=== PATIENT | female | born 1965 | race Caucasian/White ===

== ENCOUNTER 2016-05-28 11:23 | Emergency (ER) | payer OTHER ==
[2016-05-28 11:39] VITALS: PULSE 69; RESP 20; TEMP 98.1; O2SAT 93
[2016-05-28 11:42] VITALS: BP 166/74
--- NOTE | 2016-05-28 11:49 | UCPHY ---
H & P Patient Type: Established Chief Complaint Nursing Narrative: 5 days RLQ pain; nausea; last BM today; Time Seen by Provider: 05/28/16 11:45 HPI/ROS: CHIEF COMPLAINT: Abdominal pain HISTORY OF PRESENT ILLNESS: The patient presents to the ED for evaluation of a 5 day history of right-sided abdominal pain. The patient reports nausea but no vomiting or diarrhea. She denies fever, dysuria or hematuria. Patient's past medical history is significant for prior appendectomy. The patient denies any fever, cough or congestion. The patient reports her symptoms are moderate in nature. REVIEW OF SYSTEMS: A comprehensive 10 point review of systems is otherwise negative aside from elements mentioned in the history of present illness. Source: Patient Exam Limitations: No limitations - Personal History LMP (Females 10-55): Post Menopausal - Medical/Surgical History Hx Asthma: No Hx Chronic Respiratory Disease: No Hx Diabetes: No Hx Cardiac Disease: No Hx Renal Disease: No Hx Cirrhosis: No Hx Alcoholism: No Hx HIV/AIDS: No Hx Splenectomy or Spleen Trauma: No Other PMH: med hx-interstitial cystitis, gastic ulcers, migraines. surg-appy, tonsilectomy,hysteroscopy, urethral surgery - Family History Significant Family History: No pertinent family hx - Social History Smoking Status: Never smoked - Physical Exam Exam: General Appearance: Alert, no distress Eyes: Pupils equal and round no pallor or injection ENT, Mouth: Mucous membranes moist Respiratory: There are no retractions, lungs are clear to auscultation Cardiovascular: Regular rate and rhythm Gastrointestinal: Tenderness to palpation noted in right upper quadrant and mid quadrant, no peritoneal signs, no rebound or guarding Neurological: A&O, normal motor function, normal sensory exam, normal cranial nerves Skin: Warm and dry, no rashes Musculoskeletal: Neck is supple nontender Extremities: symmetrical, full range of motion Constitutional: Initial Vital Signs Temperature (C) 36.7 C 05/28/16 11:37 Heart Rate 69 05/28/16 11:37 Respiratory Rate 20 05/28/16 11:37 Blood Pressure 166/74 H 05/28/16 11:37 O2 Sat (%) 93 05/28/16 11:37 O2 Delivery Mode Room Air Allergies/Adverse Reactions: Penicillins Allergy (Verified 05/28/16 11:36) Home Medications: Medication Instructions Recorded [place] 05/28/16 GABAPENTIN 05/28/16 Hydrocodone/APAP 5/325 [[place] 1 - 2 each PO Q6 PRN #20 tab 05/28/16 5/325] Omeprazole 05/28/16 Oxycodone HCl 05/28/16 Valium 05/28/16 Medical Decision Making - Diagnostics Imaging Results: Imaging Impressions Abdomen Ultrasound 05/28/16 12:08 Impression: Normal right upper quadrant ultrasound. These findings discussed by telephone with Dr. Mushtaq Magana at 1345 hrs. Abdomen/Pelvis CT 05/28/16 13:24 Impression: 1. Findings suspicious for epiploic appendagitis along the right anterolateral aspect of the ascending colon 2. Cortical calcification upper pole left kidney probably secondary to previous scar trauma. 3. Small hypodensities in the left lobe liver lateral segment anteriorly probably representing cyst and/or hemangioma. These are indeterminate. 4. No evidence of urinary tract calculus These findings discussed by telephone with Dr. Mushtaq Magana at 1408 hrs. Attention: This CT examination is specifically designed to evaluate patients who are clinically suspected of having acute obstructive uropathy. This examination does not use radiographic contrast, and as such, provides only a limited evaluation of the abdomen, pelvis and retroperitoneum. If there is further clinical suspicion for pathological conditions other than obstructive uropathy, a complete CT evaluation of the abdomen and pelvis utilizing intravenous, oral, and rectal contrast should be considered. CT abdomen pelvis: Evidence of epiploic appendagitis noted, otherwise normal study. Study results reviewed by myself and discussed with radiologist Dr. Toni Singh. ED Course/Re-evaluation: The patient presents to the ED for 5 days of abdominal pain. The patient is noted to have mild to moderate right upper quadrant and right mid quadrant tenderness. A right upper quadrant ultrasound was ordered which demonstrates no evidence of obvious cholelithiasis or cholecystitis. The patient's liver function tests are within normal limits as are her CBC and metabolic panel. Patient was re-evaluated and noted to have ongoing abdominal pain. Given the uncertainty of the diagnosis and her tenderness a CT scan of the abdomen pelvis was ordered which demonstrates epiploic appendagitis. Patient has been informed that this is typically a benign self-limited disease. The patient will use NSAIDs as needed for pain. [place] as needed for severe pain. She is given customary aftercare instructions and return precautions. Differential Diagnosis: Differential diagnosis considered includes cholecystitis, cholelithiasis, mesenteric adenitis, torsed epiploic appendagitis, pancreatitis, perforation obstruction - Data Points Laboratory Results: Laboratory Results 05/28/16 11:50 05/28/16 11:50 05/28/16 05/28/16 05/28/16 12:50 11:50 11:50 WBC 6.41 10^3/uL 10^3/uL (3.80-9.50) RBC 4.83 10^6/uL 10^6/uL (4.18-5.33) Hgb 14.7 g/dL g/dL (12.6-16.3) Hct 43.7 % % (38.0-47.0) MCV 90.5 fL fL (81.5-99.8) MCH 30.4 pg pg (27.9-34.1) MCHC 33.6 g/dL g/dL (32.4-36.7) RDW 12.5 % % (11.5-15.2) Plt Count 286 10^3/uL 10^3/uL (150-400) MPV 9.5 fL fL (8.7-11.7) Neut % (Auto) 54.4 % % (39.3-74.2) Lymph % (Auto) 35.1 % % (15.0-45.0) Hall % (Auto) 6.7 % % (4.5-13.0) Eos % (Auto) 2.7 % % (0.6-7.6) Baso % (Auto) 0.8 % % (0.3-1.7) Nucleat RBC Rel Count 0.0 % % (0.0-0.2) Absolute Neuts (auto) 3.49 10^3/uL 10^3/uL (1.70-6.50) Absolute Lymphs (auto) 2.25 10^3/uL 10^3/uL (1.00-3.00) Absolute Monos (auto) 0.43 10^3/uL 10^3/uL (0.30-0.80) Absolute Eos (auto) 0.17 10^3/uL 10^3/uL (0.03-0.40) Absolute Basos (auto) 0.05 10^3/uL 10^3/uL (0.02-0.10) Absolute Nucleated RBC 0.00 10^3/uL 10^3/uL (0-0.01) Immature Gran % 0.3 % % (0.0-1.1) Immature Gran # 0.02 10^3/uL 10^3/uL (0.00-0.10) Sodium 141 mEq/L mEq/L (134-144) Potassium 4.2 mEq/L mEq/L (3.5-5.2) Chloride 106 mEq/L mEq/L (97-110) Carbon Dioxide 23 mEq/l mEq/l (22-31) Anion Gap 12 mEq/L mEq/L (8-16) BUN 12 mg/dL mg/dL (7-23) Creatinine 1.1 mg/dL H mg/dL (0.6-1.0) Estimated GFR 52 Glucose 96 mg/dL mg/dL (70-100) Calcium 9.3 mg/dL mg/dL (8.5-10.4) Total Bilirubin 0.6 mg/dL mg/dL (0.1-1.4) Conjugated Bilirubin 0.3 mg/dL mg/dL (0.0-0.5) Unconjugated Bilirubin 0.3 mg/dL mg/dL (0.0-1.1) AST 24 IU/L IU/L (14-46) ALT 36 IU/L IU/L (9-52) Alkaline Phosphatase 80 IU/L IU/L (38-126) Total Protein 7.1 g/dL g/dL (6.3-8.2) Albumin 3.9 g/dL g/dL (3.5-5.0) Lipase 42.0 IU/L IU/L (23-300) Urine Color YELLOW Urine Appearance CLEAR Urine pH 7.0 (5.0-7.5) Ur Specific Bulger 1.010 (1.002-1.030) Urine Protein NEGATIVE (NEGATIVE) Urine Ketones NEGATIVE (NEGATIVE) Urine Blood NEGATIVE (NEGATIVE) Urine Nitrate NEGATIVE (NEGATIVE) Urine Bilirubin NEGATIVE (NEGATIVE) Urine Urobilinogen 0.2 EU EU (0.2-1.0) Ur Leukocyte Esterase NEGATIVE (NEGATIVE) Ur Culture Indicated? NOT INDICATED (NI) Urine Glucose NEGATIVE (NEGATIVE) Departure - Departure Disposition: Home, Routine, Self-Care Clinical Impression: Epiploic appendagitis Condition: Good Instructions: Acute Abdominal Pain (ED) Additional Instructions: 1. Your CT scan demonstrates some mild inflammation of superficial fat within your abdomen. 2. This is typically a benign self-limited condition. 3. Take Ibuprofen or Motrin 600 mg by mouth three times a day. 4. [place] as needed for severe pain 5. Return to the ED or urgent care for markedly worsening pain or other concerns. Referrals: Liborio Laguna MD [Primary Care Provider] - As per Instructions Prescriptions: Hydrocodone/APAP 5/325 [[place] 5/325] 1 - 2 each PO Q6 PRN #20 tab PRN Reason: for pain - PQRS PQRS Measurement: N/A
[2016-05-28 11:54] LABS: % IMMATURE GRANULYOCYTES 0.3 % (0.0-1.1); ABSOLUTE IMMATURE GRANULOCYTES 0.02 10^3/uL (0.00-0.10); ADD DIFF? NO; ADD MORPH? NO; ADD SCAN? NO; ATYPICAL LYMPHOCYTE FLAG 0 (0-99); FRAGMENT RBC FLAG 0 (0-99); HEMATOCRIT 43.7 % (38.0-47.0); HEMOGLOBIN 14.7 g/dL (12.6-16.3); LEFT SHIFT FLG 0 (0-99); LIPEMIA HEMOLYSIS FLAG 80 (0-99); MEAN CELL HEMOGLOBIN 30.4 pg (27.9-34.1); MEAN CELL HEMOGLOBIN CONCENTR. 33.6 g/dL (32.4-36.7); MEAN CELL VOLUME 90.5 fL (81.5-99.8); MEAN PLATELET VOLUME 9.5 fL (8.7-11.7); PLATELET CLUMPS FLAG 0 (0-99); PLATELET COUNT 286 10^3/uL (150-400); RED BLOOD CELL COUNT 4.83 10^6/uL (4.18-5.33); RED CELL DISTRIBUTION WIDTH 12.5 % (11.5-15.2)
[2016-05-28 12:29] LABS: ALBUMIN 3.9 g/dL (3.5-5.0); BILIRUBIN,TOTAL 0.6 mg/dL (0.1-1.4); BILIRUBIN-CONJUGATED 0.3 mg/dL (0.0-0.5); BILIRUBIN-UNCONJUGATED 0.3 mg/dL (0.0-1.1); CALCIUM 9.3 mg/dL (8.5-10.4); CREATININE 1.1 mg/dL (0.6-1.0); POTASSIUM 4.2 mEq/L (3.5-5.2); TOTAL PROTEIN 7.1 g/dL (6.3-8.2)
[2016-05-28 13:02] LABS: COLOR YELLOW; LEUKOCYTE ESTERASE,URINE NEGATIVE (NEGATIVE); NITRITE,URINE NEGATIVE (NEGATIVE)
== END 2016-05-28 14:25 | disposition home or self-care (01) ==
LOC: CED 11:23
DX: K63.89 Other specified diseases of intestine (principal); Q43.8 Other specified congenital malformations of intestine
CPT/HCPCS: 74176-PO; 76705-PO; 80048-PO; 80076-PO; 81003-PO; 83690-PO; 85025-PO; 99215-PO; G0463-PO

== ENCOUNTER → 2018-01-09 | Outpatient (CLI) | payer OTHER | LOC: BRMIMAGING 09:42 | PROVIDERS: ATTEND Family Medicine | DX: Z13.820 Encounter for screening for osteoporosis (principal); M85.89 Other specified disorders of bone density and structure, multiple sites ==